=== PATIENT | male | born 1960 | race Caucasian/White ===

== ENCOUNTER 2017-09-23 05:45 | Inpatient (IN) | payer OTHER ==
[~2017-09-23 05:45] MED LIST: LR 1,000 ML IV ONE; ceFAZolin 2 GM/SWFI 2 GM/20 ML SYR IVP ONE
[2017-09-23] MEDS ORDERED: MIDAZOLAM 2 MG/2 ML VIAL IVP ONE (06:52)
--- NOTE | 2017-09-23 06:55 | PDANEPAE ---
ANE History of Present Illness carotid stenosis s/f L CEA ANE Past Medical History - Cardiovascular History Hx Hypertension: Yes Hx Arrhythmias: No Hx Chest Pain: No Hx Coronary Artery / Peripheral Vascular Disease: Yes Hx CHF / Valvular Disease: No Hx Palpitations: No Cardiovascular History Comment: BLOCKED L CAROTID;. ON CHOL RX,CABG BEFORE AN CO - Pulmonary History Hx COPD: No Hx Asthma/Reactive Airway Disease: No Hx Recent Upper Respiratory Infection: No Hx Oxygen in Use at Home: No Hx Sleep Apnea: No Sleep Apnea Screening Result - Last Documented: Negative - Neurologic History Hx Cerebrovascular Accident: No Hx Seizures: No Hx Dementia: No - Endocrine History Hx Diabetes: No - Renal History Hx Renal Disorders: No - Liver History Hx Hepatic Disorders: No - Neurological & Psychiatric Hx Hx Neurological and Psychiatric Disorders: Yes Neurological / Psychiatric History Comment: "LOWER SPINE DISCS EXPLODED-NO PAIN " - Cancer History Hx Cancer: No - Congenital Disorder History Hx Congenital Disorders: No - GI History Hx Gastrointestinal Disorders: No - Other Health History Other Health History: "ITCHY SKIN" S/P CABG - Chronic Pain History Chronic Pain: No - Surgical History Prior Surgeries: R CAROTID ENDARTARECTOMY. CABG X4. CERVICAL FUSION. L LEG ORIF. "ANGIOPLASTY"-NOSE. SEVERAL L FT SX X9 ANE Review of Systems Review of Systems: - Exercise capacity METS (RN): 4 METS ANE Patient History - Allergies Allergies/Adverse Reactions: No Known Allergies Allergy (Verified 09/21/17 12:25) - Home Medications Home medications: home medication list seen and reviewed Home Medications: Aspirin [Aspirin 325 mg (*)] 325 mg PO DAILY 09/21/17 [Last Taken 09/22/17] Atorvastatin Calcium [Lipitor 40 mg (*)] 80 mg PO HS 09/21/17 [Last Taken ] Lisinopril [Zestril 10 mg (*)] 10 mg PO HS 09/21/17 [Last Taken 09/23/17] Metoprolol Tartrate [Lopressor 25 mg (*)] 25 mg PO BID 09/21/17 [Last Taken ] - NPO status NPO Status: no food or drink >8 hours NPO Since - Liquids (Date): 09/23/17 NPO Since - Liquids (Time): 04:00 NPO Since - Solids (Date): 04/25/18 NPO Since - Solids (Time): 19:30 - Anes Hx Anes Hx: no prior problems - Smoking Hx Smoking Status: Former smoker - Alcohol Use Alcohol Use: Rarely - Family Anes Hx Family Anes Hx: none ANE Labs/Vital Signs - Vital Signs Blood Pressure: 100/67 Heart Rate: 77 Respiratory Rate: 16 O2 Sat (%): 93 Height: 175.26 cm Weight: 74.843 kg ANE Physical Exam - Airway Neck exam: FROM Mallampati Score: Class 2 Mouth exam: normal dental/mouth exam - Pulmonary Pulmonary: no respiratory distress - Cardiovascular Cardiovascular: regular rate and rhythym - ASA Status ASA Status: III ANE Anesthesia Plan Anesthesia Plan: general endotracheal anesthesia Lines/Monitors: arterial line
[2017-09-23] MEDS ORDERED: BUPIVACAINE 0.5% 30 ML SDV ONE (07:04)
[2017-09-23] MEDS ORDERED: THROMBIN (BOVINE) 20,000 UNIT SPRAY TP ONE (07:05)
[2017-09-23] MEDS ORDERED: PROTAMINE SULFATE 50 MG/5 ML VIAL IVP ONE ×2 (07:05→09:35)
--- NOTE | 2017-09-23 07:17 | PDHPUP ---
History & Physical Update H&P update statement: This history and physical update is based on an assessment of the patient which was completed after admission or registration (within 24 hours), but prior to the surgery/procedure. H&P update: H&P reviewed & patient examined, no change in patient's condition since H&P completed
[2017-09-23] MEDS ORDERED: PROPOFOL/EMULSION 500 MG/50 ML BOTTLE IV ONE (07:26)
[2017-09-23] MEDS ORDERED: REMIFENTANIL HCL 1 MG VIAL ONE (07:26)
[2017-09-23] MEDS ORDERED: fentaNYL 100 MCG/2 ML INJ ONE (07:27)
[2017-09-23] MEDS ORDERED: DEXAMETHASONE 4 MG/ML VIAL ONE ×2 (07:27)
[2017-09-23] MEDS ORDERED: ONDANSETRON 4 MG/2 ML VIAL ONE (07:27)
[2017-09-23] MEDS ORDERED: LIDOCAINE 2% 100 MG/5 ML SYR ONE (07:30)
[2017-09-23] MEDS ORDERED: HEPARIN 10,000 UNIT/10 ML MDV (1,000 UNIT/ML) ONE (07:31)
[2017-09-23] MEDS ORDERED: epHEDrine SULFATE 10 MG/ML SYR ONE ×2 (07:38)
[2017-09-23] MEDS ORDERED: PHENYLEPHRINE 10 MG/ML SDV ONE (08:01)
[2017-09-23] MEDS ORDERED: oxyCODONE IR 5 MG TAB PO PRN (09:21)
[2017-09-23] MEDS ORDERED: fentaNYL 100 MCG/2 ML INJ IVP PRN (09:21)
[2017-09-23] MEDS ORDERED: DEXAMETHASONE 4 MG/ML VIAL IVP PRN (09:21)
[2017-09-23] MEDS ORDERED: ONDANSETRON 4 MG/2 ML VIAL IVP PRN ×2 (09:21→09:59)
[2017-09-23] MEDS ORDERED: ALBUTEROL 3 ML DEYVIAL IH PRN (09:21)
[2017-09-23] MEDS ORDERED: NALOXONE HCL 0.4 MG/ML INJ IVP PRN (09:21)
[2017-09-23] MEDS ORDERED: METOCLOPRAMIDE 10 MG/2 ML VIAL IVP PRN (09:21)
[2017-09-23] MEDS ORDERED: LABETALOL HCL 5 MG/ML 20 ML MDV IVP PRN (09:21)
[2017-09-23] MEDS ORDERED: HYDROCODONE/APAP 5/325 TAB PO PRN (09:21)
[2017-09-23] MEDS ORDERED: ACETAMINOPHEN 500 MG TAB PO PRN (09:21)
[2017-09-23] MEDS ORDERED: PHENYLEPHRINE HCL 100 MCG/ML SYR IVP PRN (09:21)
[2017-09-23] MEDS ORDERED: PROMETHAZINE HCL 25 MG/ML INJ IVP PRN (09:21)
[2017-09-23] MEDS ORDERED: LR 500 ML IV PRN (09:21)
[2017-09-23] MEDS ORDERED: MEPERIDINE 25 MG/ML SYR IVP PRN (09:21)
[2017-09-23] MEDS ORDERED: BACITRACIN ZINC 14.2 GM OINTTUBE TP ONE (09:39)
--- NOTE | 2017-09-23 09:58 | POSTOPPROG ---
Post Op Note Date of Operation: 09/23/17 Surgeon: Thee Morrell Amr Physician: Jennifer Sousa Anesthesiologist: Sukh Cummins Anesthesia: GET(General Endotracheal) Pre-op Diagnosis: critical L carotid stenosis Post-op Diagnosis: same Indication: 57 Y M s/p R CEA now here for L CEA. Procedure: L CEA c EEG monitoring, use of shunt, and patch closure Findings: focal tight ulcerated plaque Inf/Abcess present in the surg proc area at time of surgery?: No EBL: 50-100 Complications: none Specimen(s): plaque to pathology
[2017-09-23] MEDS ORDERED: ENALAPRILAT DIHYDRATE 1.25 MG/ML VIAL IVP PRN (09:59)
[2017-09-23] MEDS ORDERED: HYDROmorphONE/DILAUDID 1 MG/ML INJ IVP PRN (09:59)
[2017-09-23] MEDS ORDERED: OXYCODONE/APAP 5/325 TAB PO PRN (09:59)
[2017-09-23] MEDS ORDERED: D5W 1/2 NS 1,000 ML IV SCH (10:00)
--- NOTE | 2017-09-23 11:54 | GOP ---
[f rep st] OPERATIVE REPORT DATE OF OPERATION: 09/23/2017 SURGEON: Thee Morrell MD [employer] SUPERVISOR: Jennifer Sousa, YULISA. ANESTHESIOLOGIST: Dr. Sukh Cummins. PREOPERATIVE DIAGNOSIS: Critical left carotid stenosis with transient ischemic attacks. POSTOPERATIVE DIAGNOSIS: Critical left carotid stenosis with transient ischemic attacks. PROCEDURE PERFORMED: Left carotid endarterectomy with EEG monitoring. FINDINGS: The patient was found to have a very tight 90% plus carotid stenosis at the origin of the internal carotid artery. He had no EEG changes during the procedure. He had adequate backflow from the internal carotid stump, and he awoke neurologically intact. ESTIMATED BLOOD LOSS: Less than 100 cc. DESCRIPTION OF PROCEDURE: Patient taken to the operating room where he received satisfactory general endotracheal anesthesia by Dr. Cummins. He was systemically heparinized prior to induction of general anesthesia. He was prepped and draped in the usual sterile fashion. Incision was made along the an terior border of the sternocleidomastoid muscle, and dissection was carried down through the platysma and subcutaneous tissue. The superficial fascia was incised. The common facial vein was dissected free, multiply ligated and divided. The carotid arterial tree was then exposed. Common carotid, int ernal carotid and external carotid arteries were all dissected free and controlled with vessel loops with care to avoid injury to the hypoglossal nerve. The inferior thyroid artery was also looped with a silk loop. After adequate exposure was achieved, the patient was given additional heparin, and af ter circulation time, the vessels were occluded with vessel loops. Arteriotomy was made in the commo n carotid artery, extended up through the very tight opening in the ulcerated plaque in the left terry tid. Adequate backflow was present. There were no EEG changes. Expeditious endarterectomy was then completed, removing the plaque with a good feathered end at the internal carotid distal portion. A shunt was then placed for protection, and flow was established. The vessels were irrigated. All charbel ris was removed. A Dacron patch was then placed over the opening and secured in place with a Hemashi eld 7 suture. The suture line was nearly completed, and the shunt was then removed. All vessels wer e back flushed, and the suture line was finished. The flow was first established through the externa l carotid and then back through the internal carotid. There were no EEG changes, as noted, and he to lerated the procedure quite well. Suture line appeared to be hemostatic. Heparin was reversed with protamine. The wound was sprayed with some topical thrombin and closed in layers using 3-0 Vicryl fo r the superficial fascia, 3-0 Vicryl for the platysma and subcutaneous tissue, and running 3-0 Prolen e vertical mattress sutures for the skin. Hemostasis was thoroughly obtained. The posterior portion of the incision was infiltrated with 0.5% Marcaine. There were no complications. He was taken to [facility] recovery room in good condition. /[id number]/MODL
--- NOTE | 2017-09-23 13:03 | PDMN ---
Medical Necessity Medical necessity: IP surgery per [facility] cpt 17635 L CEA
[2017-09-23] MEDS: METOPROLOL TARTRATE 25 MG TAB PO SCH (20:30)
[2017-09-23] MEDS ORDERED: ATORVASTATIN CALCIUM 40 MG TAB PO SCH (21:00)
[2017-09-23] MEDS ORDERED: LISINOPRIL 10 MG TAB PO SCH (21:00)
[2017-09-24] MEDS: METOPROLOL TARTRATE 25 MG TAB PO SCH (07:26)
[2017-09-24 08:49] VITALS: BP 145/84
[2017-09-24] MEDS ORDERED: ENOXAPARIN 40 MG/0.4 ML SYR SC SCH (09:00)
[2017-09-24] MEDS ORDERED: ASPIRIN 325 MG TAB PO SCH (09:00)
[2017-09-24] MEDS ORDERED: LISINOPRIL 10 MG TAB PO SCH (09:00)
[2017-09-24] MEDS ORDERED: HYDROmorphone HCL/NS 0.5 MG/ML SYR IVP PRN (09:40)
--- NOTE | 2017-09-24 09:40 | SOAPPROG ---
SOAP Progress Note Assessment/Plan: Assessment/Plan: 57 Y M s/p L CEA POD#1. Doing well. Neuro intact. BP better after meds. d/c to home. S: no complaints. eating breakfast in a chair. O: alert, nad inc cdi ctab rrr abd soft neuro grossly intact 09/24/17 09:38 Objective: Vital Signs Temp Pulse Resp BP Pulse Ox 36.6 C 83 17 145/84 H 97 09/24/17 07:24 09/24/17 07:24 09/24/17 07:24 09/24/17 08:49 09/24/17 07:24 Laboratory Results 09/24/17 05:40 09/24/17 05:40 09/23/17 09/24/17 09/25/17 05:59 05:59 05:59 Intake Total 2998 Output Total 2500 Balance 498 ICD10 Worksheet Patient Problems: Problems Problem Status Onset Carotid stenosis, left Acute - ICD10 Problem Qualifiers (1) Carotid stenosis, left
--- NOTE | 2017-09-24 10:13 | GDS ---
[f rep st] DISCHARGE SUMMARY DISCHARGE DIAGNOSIS: Left critical carotid stenosis. PROCEDURES: Left carotid endarterectomy with use of shunt and patch closure. HOSPITAL COURSE: The patient is a 57-year-old male who recently underwent a right carotid endarterec [place], who came in for a left carotid endarterectomy. The procedure was uncomplicated and he tolerate d it well. He was found to have a tight ulcerated plaque at the bifurcation. There were no EEG bajwa ges during the procedure and he awoke moving all 4 extremities. The patient's postoperative course was uneventful. He was cared for in the ICU. He did have a high blood pressure reading before taking his blood pressure medications. This improved after his medicat ions were given. He was neurologically intact and his suture line was clean with minimal swelling. DISCHARGE INSTRUCTIONS: The patient is discharged to home in stable condition with plans for outpati ent followup. All limitations were discussed in detail. /[id number]/MODL
--- NOTE | 2017-09-28 15:38 | POSTANESTH ---
Post Anesthetic Evaluation Cardiovascular Status: Normal, Stable Respiratory Status: Normal, Stable Level of Consciousness/Mental Status: Can Participate in Eval Pain Control: Adequate, Prn Tx Ordered Nausea/Vomiting Control: Adequate, Prn Tx Ordered Complications Possibly Related to Anesthesia: None Noted (seen 09/23/17 in the PACU at 1000)
== END 2017-09-24 10:01 | disposition home or self-care (01) | DRG 39 ==
LOC: F2W 05:45 → F2N 06:57 → EDBD 07:15 → F2N 13:28
PROVIDERS: ADMIT Surgery; ATTEND Surgery
PROC: 03UL0JZ Supplement Left Internal Carotid Artery with Synthetic Substitute, Open Approach (ICD-10-PCS; principal; 2017-09-23 07:15)
PROC: 03CL0ZZ Extirpation of Matter from Left Internal Carotid Artery, Open Approach (ICD-10-PCS; principal; 2017-09-23 07:15)
DX: I65.22 Occlusion and stenosis of left carotid artery (principal); I10 Essential (primary) hypertension; I25.10 Atherosclerotic heart disease of native coronary artery without angina pectoris; E78.00 Pure hypercholesterolemia, unspecified; Z86.73 Personal history of transient ischemic attack (TIA), and cerebral infarction without residual deficits; Z95.1 Presence of aortocoronary bypass graft; Z98.1 Arthrodesis status; Z87.891 Personal history of nicotine dependence
CPT/HCPCS: C1768; J0690; J1100; J1644; J1650; J2001; J2250; J2370; J2405; J2704; J2720; J3010